=== PATIENT | male | born 1990 | race Caucasian/White ===

== ENCOUNTER 2016-09-28 20:44 | Emergency (ER) | payer SELFPAY ==
--- NOTE | 2016-09-28 20:54 | ED Physician Chart ---
Chief Complaint/HPI - Patient Information Date Seen:: 09/28/16 Time Seen:: 20:47 Chief Complaint:: sensation of History of Present Illness:: 26-year-old male, otherwise healthy, complains of acute, mild to moderate, constant, sensation of foreign object in his throat since 8 AM this morning. Has associated anxiety over having something stuck in his throat. Says that he was chopping celery and thinks that one of the leaves got stuck to the fuad of his tongue or throat. Says that he has no problems eating or breathing. Says that he forced himself to throw up to try to remove the object. That is also drank and eaten multiple foods throughout the day to try and relieve the symptoms but no relief. This took place while he was at work performing his duties. Review of Systems - Review of Systems Other: Complete system review otherwise unremarkable except as noted in history of present illness. Past Medical History - Past Medical History Past Medical History: No significant medical hx Family History: None Social History: Non Smoker, No Alcohol, No Drug Use Surgical History: None, CABG Medication: None Family Medical History - Family Member Mother Ethnicity: Living Status: Still Living Hx Family Cancer: No Hx Family Coronary Artery Disease: No Hx Family Congestive Heart Failure: No Hx Family Hypertension: No Hx Family Stroke: No Hx Family Diabetes: No Physical Exam - Physical Examination Other:: INITIAL VITAL SIGNS: Reviewed by me GENERAL: Alert and interactive. No acute distress HEAD: Head is normocephalic and atraumatic EYES: EOMI. PERRL. No scleral icterus. No conjunctival injection ENT: Moist mucous membranes. No evidence of foreign body in visualized esophagus NECK: Supple. No masses. Full range of motion RESPIRATORY: No tachypnea. Clear breath sounds bilaterally. No wheezing, rales, or rhonchi CV: Regular rate and rhythm. No murmurs, rubs, or gallops ABDOMEN: Soft, non-distended, non-tender. No guarding. No rebound. No masses. EXTREMITIES: No deformity. No cyanosis. No edema. SKIN: Warm and dry. No obvious rashes. NEUROLOGIC: Alert and oriented. Face is symmetric. Speech is normal. Moves all extremities equally. Motor and sensory distally intact. ED Septic Shock - . Is Septic Shock (SBP<90, OR Lactate>4 mmol\L) present?: No Reassessment (Disposition) - Reassessment Reassessment:: Is a 26-year-old male who feels though he may have a cell relief stuck in his throat. This happened at 8 AM this morning it is now 9 PM at night. He's had no problems breathing or swallowing. No apparent esophageal foreign body on exam. Although exam is limited. There is no endoscope available here in the ER. Likely irritated his throat. Recommended follow-up with ENT in 1-2 days. Return to ER precautions were given. Patient says he understands and agrees with plan. Blood pressure was noted to be elevated over 120/80. There were no signs of hypertension. Discussed the findings with the patient and recommended that the patient follow up with the primary care physician regarding the elevated blood pressure. Reassessment Condition:: Improved - Diagnosis Diagnosis:: Acute throat irritation due to possible esophageal foreign body Elevated blood pressure without diagnosis of hypertension - Aftercare/Follow up Instructions Aftercare/Follow-Up Instructions:: Counseled pt regarding lab results/diagnosis & need follow up, Refer to Discharge Instructions - Patient Disposition Discharge/Transfer:: Home Time:: 21:06 Condition at Disposition:: Improved ED Discharge Plan - Patient Disposition Admit/Discharge/Transfer: PT DISCHARGED HOME Condition at Disposition: Improved Instructions: Esophageal Spasm
== END 2016-09-28 21:15 | disposition home or self-care (01) ==
LOC: ER 20:44
DX: J39.2 Other diseases of pharynx (principal); R03.0 Elevated blood-pressure reading, without diagnosis of hypertension
CPT/HCPCS: Z7502